=== PATIENT | male | born 1955 | race Caucasian/White ===

== ENCOUNTER → 2023-08-06 15:00 | Outpatient (REF) | payer MEDICARE, BC, SELFPAY | LOC: HWRAD 15:00 | PROVIDERS: ATTENDING PHYSICIAN Nurse Practitioner Primary Care | DX: M79.672 Pain in left foot (principal); M79.671 Pain in right foot | CPT/HCPCS: 73630 ==

== ENCOUNTER → 2023-12-03 09:04 | Outpatient (REF) | payer MEDICARE, BC, SELFPAY | LOC: HWRAD 09:04 | PROVIDERS: ATTENDING PHYSICIAN Internal Medicine Cardiovascular Disease; FAMILY PHYSICIAN Internal Medicine Geriatric Medicine | DX: R07.9 Chest pain, unspecified (principal); E78.2 Mixed hyperlipidemia; R10.13 Epigastric pain; I44.0 Atrioventricular block, first degree | CPT/HCPCS: 71275; Q9967 ==

== ENCOUNTER → 2024-03-30 12:27 | Outpatient (REF) | payer MEDICARE, BC, SELFPAY | LOC: PAVMRI 12:27 | PROVIDERS: ATTENDING PHYSICIAN Otolaryngology; FAMILY PHYSICIAN Internal Medicine Geriatric Medicine | DX: H93.A2 Pulsatile tinnitus, left ear (principal) | CPT/HCPCS: 70543; 70553; A9575 ==